=== PATIENT | male | born 1985 | race African-American/Black ===

== ENCOUNTER → 2016-07-04 | Outpatient (CLI) | payer OTHER | LOC: RAD 12:35 | PROVIDERS: ATTEND Internal Medicine Gastroenterology | DX: R10.13 Epigastric pain (principal) | CPT/HCPCS: 78227; A9537; Q9969; J2805 ==

== ENCOUNTER 2016-12-23 05:16 | Day surgery (SDC) | payer OTHER ==
[2016-12-21 08:50] LABS: HEMATOCRIT 44.8 % (37.9-51.0); HEMOGLOBIN 14.8 g/dL (13.5-17.0); HGB HCT DIFFERENCE -0.4; MEAN CORPUSCULAR HEMOGLOBIN 28.6 pg (27.0-33.4); MEAN CORPUSCULAR HGB CONC 33.1 g/dL (32.0-36.0); MEAN CORPUSCULAR VOLUME 87 fl (80-97); RED BLOOD COUNT 5.17 10^6/uL (4.35-5.55); RED CELL DISTRIBUTION WIDTH 12.6 % (11.5-14.0); WHITE BLOOD COUNT 4.3 10^3/uL (4.0-10.5)
[2016-12-21 09:08] LABS: ALANINE AMINOTRANSFERASE 37 U/L (21-72); ALBUMIN 4.1 g/dL (3.5-5.0); ALKALINE PHOSPHATASE 69 U/L (38-126); AMYLASE 36 U/L (30-110); ANION GAP 11 (5-19); ASPARTATE AMINO TRANSFERASE 17 U/L (17-59); BILIRUBIN,DIRECT 0.3 mg/dL (0.0-0.4); BILIRUBIN,TOTAL 0.7 mg/dL (0.2-1.3); BLOOD UREA NITROGEN 12 mg/dL (7-20); CARBON DIOXIDE 27 mmol/L (22-30); CHLORIDE 104 mmol/L (98-107); CREATININE RESULT 1.06 mg/dL (0.52-1.25); GLUCOSE 107 mg/dL (75-110); POTASSIUM 4.3 mmol/L (3.6-5.0); SODIUM 142.3 mmol/L (137-145); TOTAL PROTEIN 7.2 g/dL (6.3-8.2)
[~2016-12-23 05:16] MED LIST: ACETAMINOPHEN 325 MG TABLET PO PRN; CEFAZOLIN 1 GM/D5W RTU 1 GM/50 ML RTUPB IV PRN; LACTATED RINGERS 1000 ML IV PRN; LIDOCAINE 0.5% INJ-PF (5 MG/ML) 50 ML SDV SUBCUT PRN
[2016-12-23] MEDS ORDERED: LIDOCAINE 2% INJ-PF (100 MG/5 ML) SYRINGE ONE (06:36)
[2016-12-23] MEDS ORDERED: FENTANYL CITRATE INJ/PF 100 MCG/2 ML AMPUL ONE ×2 (06:36)
[2016-12-23] MEDS ORDERED: PROPOFOL INJ 200 MG/20 ML VIAL IV ONE (06:37)
[2016-12-23] MEDS ORDERED: DEXMEDETOMIDINE INJ 80 MCG/20 ML VIAL IV ONE (06:37)
[2016-12-23] MEDS ORDERED: MIDAZOLAM 2 MG/2 ML INJ ONE (06:37)
[2016-12-23] MEDS ORDERED: ACETAMINOPHEN 100 ML IV ONE (06:37)
[2016-12-23] MEDS ORDERED: BUPIVACAINE HCL 0.25 % INJ/PF (2.5 MG/1 ML) 30 ML VIAL ONE (06:47)
--- NOTE | 2016-12-23 08:37 | OPERATIVE REPORT E ---
Operative Report NAME: TONI DESAI : 1985 AGE: 31Y DATE OF SURGERY: 12/23/2016 ROOM: PREOPERATIVE DIAGNOSIS: CHRONIC CHOLECYSTITIS. POSTOPERATIVE DIAGNOSIS: CHRONIC CHOLECYSTITIS. OPERATION: Laparoscopic cholecystectomy. SURGEON: ORLY ANGELES M.D. ANESTHESIA: General. COMPLICATIONS: None. ESTIMATED BLOOD LOSS: Minimal. DRAINS: None. TISSUE REMOVED OR ALTERED: One gallbladder with contents. FINDINGS: See below. SUMMARY OF PROCEDURE: The patient was taken to the preoperative holding area in the main operating room where general anesthesia was induced. Arms were abducted, abdomen was exposed, prepped and draped in sterile fashion. The surgical plan and a surgical time out are conducted. Skin was anesthetized with 0.25% Marcaine. A supraumbilical vertical incision made with a knife and Veress needle inserted into the peritoneal cavity. Pneumoperitoneum was established. Veress needle was removed, a 5 mm port was inserted and a 5 mm flexible scope was inserted. Under direct visualization, 3 additional ports were placed: One in the subxiphoid, 2 in the subcostal positions. Visualization of the peritoneal cavity revealed no evidence of intraperitoneal injury. The gallbladder was then grasped with graspers at the fundus and infundibulum and reflected up over the liver bed. The neck of the gallbladder's junction with the cystic duct was dissected out. The anatomy here was classic. Cystic artery and cystic duct were surrounded with right inguinal clamps. Photographs were taken. Cystic artery and cystic vein were clipped as a unit, proximally 2 times, once distally, and divided with scissors. Critical view now obtained. Photographs obtained. We are now prepared to transect the cystic duct. The cystic duct was very thin. It was clipped twice proximally, once distally and divided. Gallbladder was removed from the liver bed using hook cautery resection, brought out of the patient through the supraumbilical port site. We returned to the peritoneal cavity and checked for bleeding and there was none. Clips were in appropriate position. We felt the operation was complete. Sponge and needle counts correct. All ports removed under direct visualization. Pneumoperitoneum evacuated and wounds closed with 3-0 Vicryl, Benzoin, and Steri-Strips. Patient tolerated the procedure well, extubated and taken to recovery in stable condition. DICTATING PHYSICIAN: ORLY ANGELES M.D. [id number] PHY#: [id number] ID: [id number] JOB#: [id number] ACCT: [id number] cc:ORLY ANGELES M.D. >
[2016-12-23] MEDS ORDERED: DEXAMETHASONE SOD PHOSPHATE INJ 4 MG/1 ML VIAL ONE (09:11)
[2016-12-23] MEDS ORDERED: GLYCOPYRROLATE INJ 0.4 MG/2 ML VIAL ONE (09:11)
[2016-12-23] MEDS ORDERED: ONDANSETRON HCL INJ/PF 4 MG/2 ML SDV ONE (09:11)
[2016-12-23] MEDS ORDERED: METOCLOPRAMIDE HCL INJ/PF 10 MG/2 ML SDV ONE (09:11)
[2016-12-23] MEDS ORDERED: ROCURONIUM BROMIDE INJ 50 MG/5 ML VIAL IV ONE (09:11)
[2016-12-23] MEDS ORDERED: NEOSTIGMINE METHYLSULFATE 10 MG/10 ML VIAL ONE (09:11)
[2016-12-23] MEDS ORDERED: OXYCODONE-ACETAMINOPHEN 5-325 MG TABLET ONE (09:32)
[2016-12-23 10:41] VITALS: BP 125/79
== END 2016-12-23 10:50 | disposition home or self-care (01) ==
LOC: OROUT 05:16
PROVIDERS: ATTEND Surgery
PROC: 0FT44ZZ Resection of Gallbladder, Percutaneous Endoscopic Approach (ICD-10-PCS; principal; 2016-12-23 07:30)
DX: K81.1 Chronic cholecystitis (principal); G47.33 Obstructive sleep apnea (adult) (pediatric)
CPT/HCPCS: 36415; 82150; 85027; 80076; 80048; 88304 ×2; 47562; J2250; J0690; J3490 ×2; J1100; J3010; J2001; J2765; J2405; J2704; J0131; 790

== ENCOUNTER 2017-08-22 06:39 | Emergency (ER) | payer OTHER ==
[2017-08-22 06:52] VITALS: BP 120/79
--- NOTE | 2017-08-22 07:49 | ER Document Report ---
ED Flu Like - General Chief Complaint: Flu Symptoms Stated Complaint: COLD SYMPTOMS Time Seen by Provider: 08/22/17 07:08 Mode of Arrival: Ambulatory Information source: Patient Notes: Patient is a 32-year-old male who presents to the ER today for 2 days of sore throat, productive cough, body aches all over. Patient denies any shortness of breath or wheezing although he has a history of "mild asthma." Patient denies any fever or chills. He states that the cough and the sore throat started about the same time. He states the cough does bother him at night. He denies any nausea, vomiting or diarrhea. TRAVEL OUTSIDE OF THE [place] IN LAST 30 DAYS: No - Related Data Allergies/Adverse Reactions: No Known Allergies Allergy (Verified 12/19/16 09:20) Past Medical History - General Information source: Patient - Social History Smoking Status: Current Every Day Smoker Chew tobacco use (# tins/day): No Frequency of alcohol use: Occasional Drug Abuse: None Family History: Reviewed & Not Pertinent Patient has suicidal ideation: No Patient has homicidal ideation: No - Past Medical History Cardiac Medical History: Denies: Hx Coronary Artery Disease, Hx Heart Attack, Hx Hypertension Pulmonary Medical History: Denies: Hx Asthma, Hx Bronchitis, Hx COPD, Hx Pneumonia Neurological Medical History: Denies: Hx Cerebrovascular Accident, Hx Seizures Renal/ Medical History: Denies: Hx Peritoneal Dialysis Musculoskeltal Medical History: Denies Hx Arthritis - Immunizations Hx Diphtheria, Pertussis, Tetanus Vaccination: Yes Hx Pneumococcal Vaccination: 05/08/11 Review of Systems - Review of Systems Constitutional: See HPI EENT: See HPI Cardiovascular: No symptoms reported Respiratory: See HPI Gastrointestinal: No symptoms reported Genitourinary: No symptoms reported Male Genitourinary: No symptoms reported Musculoskeletal: No symptoms reported Skin: No symptoms reported Hematologic/Lymphatic: No symptoms reported Neurological/Psychological: No symptoms reported Physical Exam - Vital signs Vitals: Temp Pulse Resp BP Pulse Ox 97.8 F 78 18 120/79 94 08/22/17 06:40 08/22/17 06:40 08/22/17 06:40 08/22/17 06:40 08/22/17 06:40 - Notes Notes: PHYSICAL EXAMINATION: GENERAL: Well-appearing and in no acute distress. HEAD: Atraumatic, normocephalic. EYES: Pupils equal round and reactive to light, extraocular movements intact, sclera anicteric, conjunctiva are normal. ENT: ear canals without erythema or foreign body, TMs pearly sanders with good bony landmarks, nares patent, oropharynx clear without exudates. Moist mucous membranes. NECK: Normal range of motion, supple without lymphadenopathy LUNGS: CTAB and equal. No wheezes rales or rhonchi. HEART: Regular rate and rhythm without murmurs ABDOMEN: Soft, no tenderness. No guarding, no rebound BACK: no vertebral tenderness, normal ROM GI/: no CVA tenderness EXTREMITIES: Normal range of motion, no pitting edema. No cyanosis. NEUROLOGICAL: Cranial nerves grossly intact. Normal sensory/motor exams. PSYCH: Normal mood, normal affect. SKIN: Warm, Dry, normal turgor, no rashes or lesions noted Course - Re-evaluation Re-evalutation: 08/22/17 07:47 Strep is negative today, patient looks clinically well and has not coughed at all here in the emergency department, however I will provide him with a cough medication and sent 800 mg of Motrin for his body aches. This is likely viral. - Vital Signs Vital signs: Temp Pulse Resp BP Pulse Ox 97.8 F 78 18 120/79 94 08/22/17 06:40 08/22/17 06:40 08/22/17 06:40 08/22/17 06:40 08/22/17 06:40 Discharge - Discharge Clinical Impression: Upper respiratory infection Qualifiers: URI type: acute nasopharyngitis (common cold) Qualified Code(s): J00 - Acute nasopharyngitis [common cold] Condition: Stable Disposition: HOME, SELF-CARE Additional Instructions: Return immediately for any new or worsening symptoms. Follow up with primary care provider, call tomorrow to make followup appointment. Prescriptions: Guaifenesin/D-Methorphan Hb [Robitussin-Dm Syrup 10 Ml Udcup] 10 ml PO Q4 PRN # 120 ml PRN Reason: Ibuprofen [Motrin 800 mg Tablet] 800 mg PO Q8H PRN #30 tab PRN Reason: Forms: Return to Work Referrals: NIVIA LAKE MD [Primary Care Provider] - Follow up as needed
== END 2017-08-22 07:55 | disposition home or self-care (01) ==
LOC: ER 06:39
DX: J00 Acute nasopharyngitis [common cold] (principal); M79.1 Myalgia; F17.200 Nicotine dependence, unspecified, uncomplicated
CPT/HCPCS: 87070; 87880; 99283

== ENCOUNTER 2019-03-05 22:07 | Emergency (ER) | payer OTHER ==
[2019-03-05] MEDS ORDERED: ASPIRIN 81 MG TABLET, CHEWABLE PO ONE (22:33)
--- NOTE | 2019-03-05 22:35 | ER Document Report ---
ED Medical Screen (RME) - General Chief Complaint: Chest Pain Stated Complaint: CHEST PAIN,HEART RACING Time Seen by Provider: 03/05/19 22:33 Primary Care Provider: NIVIA LAKE MD [Primary Care Provider] - Follow up as needed Mode of Arrival: Ambulatory Information source: Patient Notes: 33-year-old male presents to the emergency department with reports he felt like his heart was racing chest tightness while he was at work tonight at [employer]. Reports his hands were locking up also. Denies fever nausea vomiting diarrhea. Reports chest pain midsternal. Denies history of cardiac disease. Denies history of anxiety. Denies family history of cardiac disease. EKG shows sinus rhythm no ST elevation no T wave inversion I have greeted and performed a rapid initial assessment of this patient. A comprehensive ED assessment and evaluation of the patient, analysis of test results and completion of the medical decision making process will be conducted by additional ED providers. Dictation of this chart was performed using voice recognition software; therefore, there may be some unintended grammatical errors. TRAVEL OUTSIDE OF THE [place] IN LAST 30 DAYS: No - Related Data Allergies/Adverse Reactions: No Known Allergies Allergy (Verified 12/19/16 09:20) Past Medical History - Past Medical History Cardiac Medical History: Denies: Hx Coronary Artery Disease, Hx Heart Attack, Hx Hypertension Pulmonary Medical History: Denies: Hx Asthma, Hx Bronchitis, Hx COPD, Hx Pneumonia Neurological Medical History: Denies: Hx Cerebrovascular Accident, Hx Seizures Renal/ Medical History: Denies: Hx Peritoneal Dialysis Musculoskeltal Medical History: Denies Hx Arthritis - Immunizations Hx Diphtheria, Pertussis, Tetanus Vaccination: Yes Physical Exam - Vital signs Vitals: Temp Pulse Resp BP Pulse Ox 98.2 F 99 18 152/95 H 97 03/05/19 22:17 03/05/19 22:17 03/05/19 22:17 03/05/19 22:17 03/05/19 22:17 Course - Vital Signs Vital signs: Temp Pulse Resp BP Pulse Ox 98.2 F 99 18 152/95 H 97 03/05/19 22:17 03/05/19 22:17 03/05/19 22:17 03/05/19 22:17 03/05/19 22:17 Doctor's Discharge - Discharge Referrals: NIVIA LAKE MD [Primary Care Provider] - Follow up as needed
[2019-03-05 23:11] LABS: ABSOLUTE EOSINOPHILS # (AUTO) 0.2 10^3/uL (0.0-0.6); ABSOLUTE LYMPHOCYTES (AUTO) 1.6 10^3/uL (0.5-4.7); ABSOLUTE MONOCYTES (AUTO) 0.5 10^3/uL (0.1-1.4); ABSOLUTE NEUT (AUTO) 3.6 10^3/uL (1.7-8.2); BASOPHILS % (AUTO) 0.8 % (0-2); HEMATOCRIT 42.3 % (37.9-51.0); LYMPHOCYTES % (AUTO) 26.2 % (13-45); MEAN CORPUSCULAR HEMOGLOBIN 28.3 pg (27.0-33.4); MEAN CORPUSCULAR HGB CONC 33.2 g/dL (32.0-36.0); MEAN CORPUSCULAR VOLUME 85 fl (80-97); MONOCYTES % (AUTO) 9.1 % (3-13); PLATELET COUNT 186 10^3/uL (150-450); RED BLOOD COUNT 4.96 10^6/uL (4.35-5.55); RED CELL DISTRIBUTION WIDTH 13.1 % (11.5-14.0); SEGMENTED NEUTROPHILS % (AUTO) 60.9 % (42-78); TOTAL CELLS COUNTED % (AUTO) 100 %; WHITE BLOOD COUNT 5.9 10^3/uL (4.0-10.5)
--- NOTE | 2019-03-05 23:26 | RADIOLOGY REPORT (SQ) ---
EXAM DESCRIPTION: XR CHEST 2 VIEWS COMPLETED DATE/TME: 03/05/2019 22:33 CLINICAL HISTORY: 33 years, Male, cp COMPARISON: 03/22/2012 chest NUMBER OF VIEWS: 2 TECHNIQUE: 2 views of the chest LIMITATIONS: None. FINDINGS: The heart size is normal. The lungs are clear. There is no pneumothorax IMPRESSION: Negative chest copyright 2010 [employer]- All Rights Reserved
[2019-03-05 23:27] LABS: ALBUMIN 4.4 g/dL (3.5-5.0); ALKALINE PHOSPHATASE 77 U/L (38-126); ANION GAP 10 (5-19); ASPARTATE AMINO TRANSFERASE 20 U/L (17-59); BILIRUBIN,DIRECT 0.1 mg/dL (0.0-0.4); BILIRUBIN,TOTAL 0.6 mg/dL (0.2-1.3); BLOOD UREA NITROGEN 15 mg/dL (7-20); CALCIUM 9.7 mg/dL (8.4-10.2); CARBON DIOXIDE 27 mmol/L (22-30); CHLORIDE 105 mmol/L (98-107); CREATINE KINASE 245 U/L (55-170); GLUCOSE 97 mg/dL (75-110); POTASSIUM 3.8 mmol/L (3.6-5.0); TOTAL PROTEIN 7.4 g/dL (6.3-8.2)
[2019-03-05 23:39] LABS: CREATINE KINASE MB 1.47 ng/mL (<4.55)
[2019-03-05 23:41] LABS: TROPONIN I < 0.012 ng/mL
[2019-03-06] MEDS ORDERED: ASPIRIN 81 MG TABLET, CHEWABLE ONE ×2 (01:52→01:54)
--- NOTE | 2019-03-06 02:02 | ER Document Report ---
ED Cardiac - General Chief Complaint: Chest Pain Stated Complaint: CHEST PAIN,HEART RACING Time Seen by Provider: 03/06/19 02:02 Primary Care Provider: DANIELA MONTERO MD [ACTIVE STAFF] - Follow up as needed NIVIA LAKE MD [Primary Care Provider] - Follow up as needed Mode of Arrival: Ambulatory Information source: Patient Notes: HISTORY OF PRESENT ILLNESS: Patient is a 33-year-old male with a past medical history of obesity and anxiety who presents with episode of palpitations that occurred while driving his car prior to arrival. Patient reports he has had similar symptoms in the past but was self-limited, this episode occurred while driving and lasted longer than normal. He felt "overwhelmed and like I was going to , "but I have bad anxiety." He denies shortness of breath, no chest pain, no other symptoms. Location: Chest Onset: Sudden prior to arrival Alleviation: None Provocation: Unknown Quality: Palpitations Radiation: None Severity: Moderate, currently resolved Timing: Resolved History of CAD: None Associated symptoms: Denies chest pain or shortness of breath, no fevers or chills, no nausea or vomiting REVIEW OF SYSTEMS: CONSTITUTIONAL : Denies fever or chills, no sweats. Denies recent illness. EENT: Denies eye, ear, throat, or mouth pain or symptoms. Denies nasal or sinus congestion. CARDIOVASCULAR: Positive for palpitations. Denies chest pain. Denies swelling of the legs. RESPIRATORY: Denies cough, cold, or chest congestion. Denies shortness of breath or difficulty breathing. Denies wheezing. GASTROINTESTINAL: Denies abdominal pain. Denies nausea, vomiting, or diarrhea. Denies constipation. GENITOURINARY: Denies difficulty urinating, painful urination, burning, frequency, or blood in urine. MUSCULOSKELETAL: Denies neck or back pain or joint pain or swelling. SKIN: Denies rash or skin lesions. HEMATOLOGIC : Denies easy bruising or bleeding. LYMPHATIC: Denies swollen, enlarged glands. NEUROLOGICAL: Denies altered mental status or loss of consciousness. Denies headache. Denies weakness or paralysis or loss of use of either side. Denies problems with gait or speech. Denies sensory or motor loss. PSYCHIATRIC: Denies anxiety or stress or depression. All other systems reviewed and negative. PHYSICAL EXAMINATION: GENERAL: Well-appearing, obese, well-nourished and in no acute distress. HEAD: Atraumatic, normocephalic. No scalp deformity, depression, or crepitance. EYES: Pupils are 3 mm and equal/round/reactive to light, extraocular movements intact, sclera anicteric, conjunctiva are normal. ENT: Nares patent bilaterally, oropharynx. Moist mucous membranes. No tonsil hypertrophy. NECK: Normal range of motion, supple without lymphadenopathy. LUNGS: Breath sounds present, equal, and clear to auscultation bilaterally. No wheezes, rales, or rhonchi. HEART: Regular rate and rhythm without murmurs, rubs, or gallops. 2+ peripheral pulses. Normal capillary refill. ABDOMEN: Soft, nontender, nondistended. Normoactive bowel sounds. No guarding, no rebound. No masses appreciated. BACK: Normal contour, no midline tenderness. Rectal exam deferred. GENITAL/PELVIC: Deferred. EXTREMITIES: Normal range of motion, no pitting or edema. No cyanosis. NEUROLOGICAL: No focal neurological deficits. Moves all extremities spontaneously and on command. PSYCH: Normal mood, normal affect. No suicidal thoughts/ideations. No homicidal thoughts/ideations. No hallucinations. SKIN: Warm, dry, normal turgor, no rashes or lesions noted. ASSESSMENT AND PLAN: This patient 33is a [id number] male who presents with palpitations and anxiety prior to arrival. Given history, most likely represents PSVT versus SVT versus anxiety. 1. Will obtain labs, urine, EKG, chest x-ray, cardiac enzymes, urine, drug screen, and reassess. 2. Will monitor and observe. TRAVEL OUTSIDE OF THE [place] IN LAST 30 DAYS: No - HPI Patient complains to provider of: Palpitations Was the onset of pain: Sudden Is the pain a: New problem Chest pain location: Substernal Quality of pain: None Severity now: None Severity at worst: Moderate Pain level currently: Denies Cardiac risk factors: None Positive cardiac history: No Associated symptoms: Anxiety, Other - Paresthesias of the extremities Exacerbated by: Denies Relieved by: Nothing Similar symptoms previously: No Recently seen / treated by doctor: No - Related Data Allergies/Adverse Reactions: No Known Allergies Allergy (Verified 12/19/16 09:20) Past Medical History - General Information source: Patient - Social History Smoking Status: Current Some Day Smoker Chew tobacco use (# tins/day): No Frequency of alcohol use: None Drug Abuse: None Lives with: Family Family History: Reviewed & Not Pertinent Patient has suicidal ideation: No Patient has homicidal ideation: No - Past Medical History Cardiac Medical History: Reports: None Denies: Hx Coronary Artery Disease, Hx Heart Attack, Hx Hypertension Pulmonary Medical History: Reports: None Denies: Hx Asthma, Hx Bronchitis, Hx COPD, Hx Pneumonia EENT Medical History: Reports: None Neurological Medical History: Reports: None. Denies: Hx Cerebrovascular Accident, Hx Seizures Endocrine Medical History: Reports: None Renal/ Medical History: Reports: None. Denies: Hx Peritoneal Dialysis Malignancy Medical History: Reports None GI Medical History: Reports: None Musculoskeletal Medical History: Reports None, Denies Hx Arthritis Skin Medical History: Reports None Psychiatric Medical History: Reports: None Traumatic Medical History: Reports: None Infectious Medical History: Reports: None Surgical Hx: Negative Past Surgical History: Reports: None - Immunizations Hx Diphtheria, Pertussis, Tetanus Vaccination: Yes Hx Pneumococcal Vaccination: 05/08/11 Review of Systems - Review of Systems Constitutional: No symptoms reported EENT: No symptoms reported Cardiovascular: See HPI, Palpitations Respiratory: No symptoms reported Gastrointestinal: No symptoms reported Genitourinary: No symptoms reported Male Genitourinary: No symptoms reported Musculoskeletal: No symptoms reported Skin: No symptoms reported Hematologic/Lymphatic: No symptoms reported Neurological/Psychological: See HPI, Anxiety, Tingling -: Yes All other systems reviewed and negative Physical Exam - Vital signs Vitals: Temp Pulse Resp BP Pulse Ox 98.2 F 99 18 152/95 H 97 03/05/19 22:17 03/05/19 22:17 03/05/19 22:17 03/05/19 22:17 03/05/19 22:17 Interpretation: Normal Course - Re-evaluation Re-evalutation: 03/06/19 02:41 Labs are grossly unremarkable with negative cardiac enzymes and normal chest x- ray. Will discharge the patient home with strict return precautions and follow- up with primary care and cardiology. All results were explained to and discussed with the patient, and all questions addressed and answered. The patient voices both understanding and agreeing with the plan. - Vital Signs Vital signs: Temp Pulse Resp BP Pulse Ox 98.2 F 99 15 115/79 93 03/05/19 22:17 03/05/19 22:17 03/06/19 03:01 03/06/19 03:01 03/06/19 03:01 - Laboratory Result Diagrams: 03/05/19 22:40 03/05/19 22:40 Laboratory results interpreted by me: 03/05/19 22:40 Creatine Kinase 245 H - Diagnostic Test Radiology reviewed: Image reviewed, Reports reviewed - EKG Interpretation by Me EKG shows normal: Sinus rhythm Rate: Normal Rhythm: NSR [place]/QRS: No: Right axis deviation, Left axis deviation, RBBB, LBBB, IVCD, LAHB/LAFB, LPHB/LPFB, Bifasicular block Voltage: No: Increased voltage, Consistant with LVH, Decreased voltage, Throughout, Limb leads P Waves: No: ANIL, LAE, Absent, AV Dissociation, Other Heart block present: No: 1st Degree, Mobitz 1, Mobitz 2, CHB (3rd degree block) When compared to previous EKG there are: Previous EKG unavailable Discharge - Discharge Clinical Impression: Palpitations Condition: Good Disposition: HOME, SELF-CARE Instructions: Palpitations (Irregular or Rapid Heartrate) ([facility]) Additional Instructions: You have been evaluated in the Emergency Department for palpitations. While here, you had normal blood work and it is now safe to be discharged home. Please follow-up with cardiology as instructed, contact them at the number provided to set up an appointment as soon as possible. Return to the Emergency Department if you experience chest pain, difficulty breathing, episodes of pass ing out, or any other concerning symptoms. Forms: Return to Work Referrals: NIVIA LAKE MD [Primary Care Provider] - Follow up as needed DANEILA MONTERO MD [ACTIVE STAFF] - Follow up as needed Print Language: Trinidadian
[2019-03-06 03:11] VITALS: BP 115/79
--- NOTE | 2019-03-06 07:44 | EKG REPORT ---
SEVERITY:- NORMAL ECG - SINUS RHYTHM : Confirmed by: Laurent Long MD 06-Mar-2019 07:43:17
== END 2019-03-06 03:24 | disposition home or self-care (01) ==
LOC: ER 22:07
DX: R00.2 Palpitations (principal); E07.9 Disorder of thyroid, unspecified; E66.9 Obesity, unspecified; F17.200 Nicotine dependence, unspecified, uncomplicated; F41.9 Anxiety disorder, unspecified
CPT/HCPCS: 36415; 71046; 80053; 82550; 82553; 84484; 85025; 93005; 93010; 99285

== ENCOUNTER 2019-03-07 11:21 | Emergency (ER) | payer OTHER ==
[2019-03-07] MEDS ORDERED: ASPIRIN 81 MG TABLET, CHEWABLE PO ONE (11:26)
--- NOTE | 2019-03-07 11:31 | ER Document Report ---
ED Medical Screen (RME) - General Chief Complaint: Chest Pain > 30 Stated Complaint: CHEST PAIN Time Seen by Provider: 03/07/19 11:26 Primary Care Provider: NIVIA LAKE MD [Primary Care Provider] - Follow up as needed Mode of Arrival: Ambulatory Information source: Patient Notes: 33-year-old male presented to ED for complaint of chest pain. He states he was here earlier in the week for the same symptoms. He states he has sharp pain in the center of his chest and numbness to both hands. He denies any shortness of breath. He has no other history. He is alert oriented respirations regular and unlabored speaking in full sentences walks with a even steady gait. I have greeted and performed a rapid initial assessment of this patient. A comprehensive ED assessment and evaluation of the patient, analysis of test results and completion of medical decision making process will be conducted by an additional ED providers. TRAVEL OUTSIDE OF THE [place] IN LAST 30 DAYS: No - Related Data Allergies/Adverse Reactions: No Known Allergies Allergy (Verified 12/19/16 09:20) Past Medical History - Past Medical History Cardiac Medical History: Denies: Hx Coronary Artery Disease, Hx Heart Attack, Hx Hypertension Pulmonary Medical History: Denies: Hx Asthma, Hx Bronchitis, Hx COPD, Hx Pneumonia Neurological Medical History: Denies: Hx Cerebrovascular Accident, Hx Seizures Renal/ Medical History: Denies: Hx Peritoneal Dialysis Musculoskeltal Medical History: Denies Hx Arthritis - Immunizations Hx Diphtheria, Pertussis, Tetanus Vaccination: Yes Doctor's Discharge - Discharge Referrals: NIVIA LAKE MD [Primary Care Provider] - Follow up as needed
[2019-03-07 12:07] LABS: ABSOLUTE EOSINOPHILS # (AUTO) 0.1 10^3/uL (0.0-0.6); ABSOLUTE MONOCYTES (AUTO) 0.4 10^3/uL (0.1-1.4); ABSOLUTE NEUT (AUTO) 2.1 10^3/uL (1.7-8.2); BASOPHILS % (AUTO) 1.2 % (0-2); EOSINOPHILS % (AUTO) 2.7 % (0-6); HEMATOCRIT 43.5 % (37.9-51.0); HEMOGLOBIN 14.4 g/dL (13.5-17.0); LYMPHOCYTES % (AUTO) 28.2 % (13-45); MEAN CORPUSCULAR HEMOGLOBIN 28.1 pg (27.0-33.4); MEAN CORPUSCULAR HGB CONC 33.2 g/dL (32.0-36.0); MEAN CORPUSCULAR VOLUME 85 fl (80-97); PLATELET COUNT 175 10^3/uL (150-450); RED BLOOD COUNT 5.13 10^6/uL (4.35-5.55); RED CELL DISTRIBUTION WIDTH 12.9 % (11.5-14.0); SEGMENTED NEUTROPHILS % (AUTO) 57.9 % (42-78); TOTAL CELLS COUNTED % (AUTO) 100 %; WHITE BLOOD COUNT 3.6 10^3/uL (4.0-10.5)
--- NOTE | 2019-03-07 12:07 | RADIOLOGY REPORT (SQ) ---
EXAM DESCRIPTION: CHEST 2 VIEWS COMPLETED DATE/TIME: 03/07/2019 11:54 am REASON FOR STUDY: chest pain center of chest finger numbness COMPARISON: 03/05/2019 EXAM PARAMETERS: NUMBER OF VIEWS: two views TECHNIQUE: Digital Frontal and Lateral radiographic views of the chest acquired. RADIATION DOSE: NA LIMITATIONS: none FINDINGS: LUNGS AND PLEURA: No opacities, masses or pneumothorax. No pleural effusion. MEDIASTINUM AND HILAR STRUCTURES: No masses or contour abnormalities. HEART AND VASCULAR STRUCTURES: Heart normal size. No evidence for failure. BONES: No acute findings. HARDWARE: None in the chest. OTHER: No other significant finding. IMPRESSION: NO ACUTE RADIOGRAPHIC FINDING IN THE CHEST. TECHNICAL DOCUMENTATION: JOB ID: [id number] [email or web address]- All Rights Reserved Reading location - IP/workstation name: [email or web address]
[2019-03-07 12:30] LABS: ALBUMIN 4.2 g/dL (3.5-5.0); ALKALINE PHOSPHATASE 79 U/L (38-126); ANION GAP 10 (5-19); ASPARTATE AMINO TRANSFERASE 20 U/L (17-59); BILIRUBIN,DIRECT 0.1 mg/dL (0.0-0.4); BLOOD UREA NITROGEN 10 mg/dL (7-20); CALCIUM 9.8 mg/dL (8.4-10.2); CARBON DIOXIDE 25 mmol/L (22-30); CHLORIDE 107 mmol/L (98-107); CREATINE KINASE 175 U/L (55-170); GLUCOSE 105 mg/dL (75-110); TOTAL PROTEIN 7.3 g/dL (6.3-8.2)
[2019-03-07 12:48] LABS: CREATINE KINASE MB 0.85 ng/mL (<4.55); NT PRO BNP 16 pg/mL (<125)
[2019-03-07 12:49] LABS: TROPONIN I < 0.012 ng/mL
--- NOTE | 2019-03-07 13:08 | EKG REPORT ---
SEVERITY:- BORDERLINE ECG - SINUS RHYTHM SHORT CT INTERVAL, ACCELERATED AV CONDUCTION : Confirmed by: Laurent Long MD 07-Mar-2019 13:07:28
--- NOTE | 2019-03-07 14:43 | ER Document Report ---
ED General - General Chief Complaint: Chest Pain Stated Complaint: CHEST PAIN Time Seen by Provider: 03/07/19 11:26 Primary Care Provider: NIVIA LAKE MD [Primary Care Provider] - Follow up as needed Mode of Arrival: Ambulatory TRAVEL OUTSIDE OF THE [place] IN LAST 30 DAYS: No - HPI Notes: Patient is a 33-year-old male who presents emergency department for evaluation. He describes a thumping chest pain. He states he is associated "cramping of his hands with numbness and tingling. He states he feels somewhat short of breath. This is not brought about by exertion, nothing seems to make it better. His symptoms last 15 to 30 minutes at a time. He was actually seen here recently for similar symptoms, was sent for follow-up with a Holter monitor on Monday. He has not seen his primary care doctor in a few years. He has no personal history of cancer. No prolonged immobilization, no recent surgery. No family history of DVT or PE to his knowledge. - Related Data Allergies/Adverse Reactions: No Known Allergies Allergy (Verified 12/19/16 09:20) Home Medications: None Past Medical History - General Information source: Patient - Social History Smoking Status: Current Every Day Smoker Chew tobacco use (# tins/day): No Frequency of alcohol use: Occasional Drug Abuse: Marijuana Family History: Reviewed & Not Pertinent, Hypertension Patient has suicidal ideation: No Patient has homicidal ideation: No - Past Medical History Cardiac Medical History: Denies: Hx Coronary Artery Disease, Hx Heart Attack, Hx Hypertension Pulmonary Medical History: Denies: Hx Asthma, Hx Bronchitis, Hx COPD, Hx Pneumonia Neurological Medical History: Denies: Hx Cerebrovascular Accident, Hx Seizures Renal/ Medical History: Denies: Hx Peritoneal Dialysis Musculoskeletal Medical History: Denies Hx Arthritis Past Surgical History: Reports: Hx Cholecystectomy - Immunizations Hx Diphtheria, Pertussis, Tetanus Vaccination: Yes Hx Pneumococcal Vaccination: 05/08/11 Review of Systems - Review of Systems Constitutional: No symptoms reported EENT: No symptoms reported Cardiovascular: See HPI Respiratory: See HPI Gastrointestinal: No symptoms reported Genitourinary: No symptoms reported Musculoskeletal: No symptoms reported Skin: No symptoms reported Neurological/Psychological: No symptoms reported Physical Exam - Vital signs Vitals: Temp Pulse Resp BP Pulse Ox 98.4 F 80 16 140/89 H 97 03/07/19 11:32 03/07/19 11:32 03/07/19 11:32 03/07/19 11:32 03/07/19 11:32 - Notes Notes: Vital signs reviewed, please refer to chart. Head is normocephalic, atraumatic. Pupils equal round, reactive to light. Neck is supple without meningismus. Heart is regular rate and rhythm. Lungs are clear to auscultation bilaterally. Abdomen is soft, nontender, normoactive bowel sounds throughout. Extremities without cyanosis, clubbing. Posterior calves are nontender. Peripheral pulses are equal. Skin is warm and dry. Patient is awake, alert, neurological exam is nonfocal. Course - Re-evaluation Re-evalutation: 03/07/19 14:42 Patient presents emergency department for evaluation of pounding chest pain, palpitations, numbness of his hands. His laboratory investigations were obtained, patient placed on the nuclear monitoring technician. Patient had no significant ectopy while here. He remained in sinus rhythm, heart rate in the 70s and 80s. Laboratory investigations failed to reveal any significant abnormality. He has no risk factors for DVT or PE. He already has outpatient follow-up with a Holter monitor. He is strongly encouraged to address his risk factors in regards to coronary artery disease. He voiced understanding to this. He is to return to the emergency department with worsening or new concerning symptoms of any sort. - Vital Signs Vital signs: Temp Pulse Resp BP Pulse Ox 98.4 F 80 16 140/89 H 97 03/07/19 11:32 03/07/19 11:32 03/07/19 11:32 03/07/19 11:32 03/07/19 12:03 - Laboratory Result Diagrams: 03/07/19 11:43 03/07/19 11:43 Laboratory results interpreted by me: 03/07/19 03/07/19 11:43 11:43 WBC 3.6 L Creatine Kinase 175 H - Diagnostic Test Radiology reviewed: Reports reviewed Radiology results interpreted by me: 03/07/19 14:43 Chest X-Ray 03/07/19 11:27 IMPRESSION: NO ACUTE RADIOGRAPHIC FINDING IN THE CHEST. - EKG Interpretation by Me Additional EKG results interpreted by me: 03/07/19 14:43 Sinus mechanism with a rate of 74 bpm. Short ME interval. Nonspecific ST changes, but no acute changes concerning for ischemia or infarction. Discharge - Discharge Clinical Impression: Palpitations, Chest pain Condition: Stable Disposition: HOME, SELF-CARE Instructions: Chest Pain of Unclear Cause ([facility]), Palpitations (Irregular or Rapid Heartrate) ([facility]) Additional Instructions: No clear cause was found for your palpitations or chest pain today. Please follow-up with your Holter monitor, follow-up with Dr. Lake next week. Continue to address all of your risk factors as discussed. Return to the emergency department with worsening or new concerning symptoms of any sort. Referrals: NIVIA LAKE MD [Primary Care Provider] - Follow up as needed
[2019-03-07 14:45] LABS: INTERNATIONAL RATION (INR) 1.04; PROTHROMBIN TIME 13.6 SEC (11.4-15.4)
[2019-03-07 15:09] VITALS: BP 150/77
== END 2019-03-07 15:10 | disposition home or self-care (01) ==
LOC: ER 11:21
DX: R07.9 Chest pain, unspecified (principal); R00.2 Palpitations; R25.2 Cramp and spasm; R20.0 Anesthesia of skin; R20.2 Paresthesia of skin; R06.02 Shortness of breath; F17.200 Nicotine dependence, unspecified, uncomplicated; F12.10 Cannabis abuse, uncomplicated
CPT/HCPCS: 36415; 71046; 80053; 82550; 82553; 83735; 83880; 84443; 84484; 85025; 85610; 85730; 93005; 93010

== ENCOUNTER 2019-03-12 12:15 | Emergency (ER) | payer OTHER ==
--- NOTE | 2019-03-12 15:15 | ER Document Report ---
ED General - General Chief Complaint: Numbness of Arm Stated Complaint: RIGHT ARM NUMBNESS Time Seen by Provider: 03/12/19 12:45 Notes: RN NOTE: Pt ambulatory to ED c/o "chest racing" and right sided arm tingling intermittent since last week Monday. Pt reports tingling/numbness is predominantly in his right hand. Pt reports he was seen for same symptoms and dx with anxiety last week Monday and saw Dr. Jason this morning as well. Pt reports he was prescribed anxiety medications but does not want to take them because "I don't like taking pills". Pt reports right sided neck pain, had a CT cervical scan done this AM which was unremarkable. Breaths even and unlabored. Pt appears anxious. Negative stroke screen. MY HPI: Patient voices he was seen here approximately a week ago for his heart racing and tingling in his right side. States he was told to follow-up with cardiology. States he was at Dr. Jason's office today who gave him a prescription for Celexa, BuSpar, Vistaril. Also sent him for an outpatient x- ray of his cervical spine. States Dr. Jason thought potentially he had a pinched nerve so he wanted him to get an x-ray outpatient. Patient voices he was at this facility to get the outpatient x-ray and then again felt his "heart racing" and tingling in bilateral hands. Patient voices at that point time he decided to check to check him to be reevaluated in the emergency room. Patient voices to me he is currently working 2 jobs, states he is currently going through divorce and has a young child at home. States he is very "stressed." Patient's denying any suicidal or homicidal ideations. Patient is currently denying any chest pain, shortness of breath, numbness or tingling in either hands. TRAVEL OUTSIDE OF THE [place] IN LAST 30 DAYS: No - Related Data Allergies/Adverse Reactions: No Known Allergies Allergy (Verified 03/12/19 12:29) Past Medical History - General Information source: Patient - Social History Smoking Status: Never Smoker Chew tobacco use (# tins/day): No Frequency of alcohol use: Occasional Drug Abuse: Marijuana Family History: Reviewed & Not Pertinent, Hypertension Patient has suicidal ideation: No Patient has homicidal ideation: No - Past Medical History Cardiac Medical History: Denies: Hx Coronary Artery Disease, Hx Heart Attack, Hx Hypertension Pulmonary Medical History: Denies: Hx Asthma, Hx Bronchitis, Hx COPD, Hx Pneumonia Neurological Medical History: Denies: Hx Cerebrovascular Accident, Hx Seizures Renal/ Medical History: Denies: Hx Peritoneal Dialysis Musculoskeletal Medical History: Denies Hx Arthritis Past Surgical History: Reports: Hx Cholecystectomy - Immunizations Hx Diphtheria, Pertussis, Tetanus Vaccination: Yes Hx Pneumococcal Vaccination: 05/08/11 Review of Systems - Review of Systems Constitutional: denies: Fever EENT: No symptoms reported Cardiovascular: See HPI Respiratory: See HPI Gastrointestinal: No symptoms reported Genitourinary: No symptoms reported Male Genitourinary: No symptoms reported Musculoskeletal: No symptoms reported Skin: No symptoms reported Hematologic/Lymphatic: No symptoms reported Neurological/Psychological: See HPI Physical Exam - Vital signs Vitals: Temp Pulse Resp BP Pulse Ox 98.0 F 83 18 144/77 H 99 03/12/19 12:18 03/12/19 12:18 03/12/19 12:18 03/12/19 12:18 03/12/19 12:18 - Notes Notes: GENERAL: Alert, interacts well. No acute distress. HEAD: Normocephalic, atraumatic. EYES: Pupils equal, round, and reactive to light. Extraocular movements intact. ENT: Oral mucosa moist, tongue midline. NECK: Full range of motion. Supple. Trachea midline. LUNGS: Clear to auscultation bilaterally, no wheezes, rales, or rhonchi. No respiratory distress. HEART: Regular rate and rhythm. No murmur ABDOMEN: Soft, non-tender. Non-distended. Bowel sounds present in all 4 quadrants. EXTREMITIES: Moves all 4 extremities spontaneously. No edema, normal radial and dorsalis pedis pulses bilaterally. No cyanosis. BACK: no cervical, thoracic, lumbar midline tenderness. No saddle anesthesia, normal distal neurovascular exam. NEUROLOGICAL: Alert and oriented x3. Normal speech. cranial nerves II through XII grossly intact PSYCH: Normal affect, normal mood. SKIN: Warm, dry, normal turgor. No rashes or lesions noted. Course - Re-evaluation Re-evalutation: 03/12/19 15:20 Patient has been to this facility in the past for chest pain, has had a full work-up that was negative. Was told to follow-up with cardiology. Cardiology did give the patient a prescription for Celexa, BuSpar, Vistaril. Patient has prescription with him in the emergency room. I have asked Bro Alejo, mental health air conditioning unit tester to speak to the patient at bedside. Please see Lamin Meyer' note. She has given me paperwork for community outpatient referral this and [facility] Aiden Melchor LPC, [facility] information. I have again reassessed the patient at bedside. Patient voices "I feel so much better after talking to Lamin." I have again reiterated need to follow-up with these outpatient referral list as these are also mental health evaluators that he can speak to. Patient voices understanding, stable for discharge. Continues to deny any chest pain, shortness of breath, numbness or tingling in any extremity. - Vital Signs Vital signs: Temp Pulse Resp BP Pulse Ox 98.0 F 83 18 144/77 H 99 03/12/19 12:18 03/12/19 12:18 03/12/19 12:18 03/12/19 12:18 03/12/19 12:18 Discharge - Discharge Clinical Impression: Anxiety Condition: Stable Disposition: HOME, SELF-CARE Instructions: Anxiety ([facility]) Additional Instructions: As we discussed you have been seen and treated in the emergency department for anxiety. Please make sure you take medications as prescribed by Dr. Christianson. Imaging of your neck revealed no fractures or broken bones. Please make sure you continue to follow-up with primary care provider and cardiology as needed. Please also use community outpatient referral list for continued mental health. Please return to the emergency department for any concerns. Forms: Return to Work
[2019-03-12 15:43] VITALS: BP 139/75
== END 2019-03-12 15:43 | disposition home or self-care (01) ==
LOC: ER 12:15
DX: F41.9 Anxiety disorder, unspecified (principal); R20.0 Anesthesia of skin; Z90.49 Acquired absence of other specified parts of digestive tract
CPT/HCPCS: 99283

== ENCOUNTER → 2019-03-12 | Outpatient (CLI) | payer OTHER ==
--- NOTE | 2019-03-12 12:19 | RADIOLOGY REPORT (SQ) ---
EXAM DESCRIPTION: CERV SP 4 OR 5 VIEWS COMPLETED DATE/TIME: 03/12/2019 11:35 am REASON FOR STUDY: CERVICALGIA (M54.2) M54.2 CERVICALGIA COMPARISON: None. NUMBER OF VIEWS: Five views. TECHNIQUE: AP, lateral, obliques and odontoid radiographic images acquired of the cervical spine. LIMITATIONS: None. FINDINGS: MINERALIZATION: Normal. ALIGNMENT: Anatomic. VERTEBRAE: Vertebral bodies of normal height. DISCS: No significant osteophytes or sclerosis. Disc height maintained. FORAMINA: No osteophytes or foraminal narrowing. LATERAL AND POSTERIOR ELEMENTS: Facets, lateral masses and spinous processes without significant find ings. HARDWARE: None in the spine. SOFT TISSUES: No masses or calcifications. Lung apices clear. OTHER: No other significant finding. IMPRESSION: NO SIGNIFICANT RADIOGRAPHIC FINDING IN THE CERVICAL SPINE. TECHNICAL DOCUMENTATION: JOB ID: [id number] [email or web address]- All Rights Reserved Reading location - IP/workstation name: [email or web address]
== END ==
LOC: RAD 10:30
PROVIDERS: ATTEND Internal Medicine Cardiovascular Disease
DX: M54.2 Cervicalgia (principal)
CPT/HCPCS: 72050

== ENCOUNTER 2019-05-19 15:32 | Emergency (ER) | payer OTHER ==
[2019-05-19] MEDS ORDERED: IBUPROFEN 800 MG TABLET PO ONE (16:10)
[2019-05-19] MEDS ORDERED: ACETAMINOPHEN 325 MG TABLET PO ONE (16:13)
--- NOTE | 2019-05-19 16:15 | ER Document Report ---
HPI - HPI Patient complains to provider of: COUGH FEVER SORE THROAT BODY ACHES Time Seen by Provider: 05/19/19 16:05 Onset: Other - MONDAY NIGHT Quality of pain: Achy Pain Level: 3 Context: This 33-year-old male presents emergency department with complaints of body aches sore throat fever since Monday night. Patient reports temperature of 103 this morning. He did take some [id number] meds without relief of symptoms. Patient did not receive his flu vaccine. Denies vomiting diarrhea. Associated Symptoms: Body/muscle aches, Nonproductive cough, Fever Exacerbated by: Denies Relieved by: Denies Similar symptoms previously: No Recently seen / treated by doctor: No - REPRODUCTIVE Reproductive: DENIES: : Past Medical History - General Information source: Patient - Social History Smoking Status: Never Smoker Chew tobacco use (# tins/day): No Frequency of alcohol use: None Drug Abuse: None Lives with: Family Family History: Reviewed & Not Pertinent, Hypertension Patient has suicidal ideation: No Patient has homicidal ideation: No - Medical History Medical History: Negative - Past Medical History Cardiac Medical History: Denies: Hx Coronary Artery Disease, Hx Heart Attack, Hx Hypertension Pulmonary Medical History: Denies: Hx Asthma, Hx Bronchitis, Hx COPD, Hx Pneumonia Neurological Medical History: Denies: Hx Cerebrovascular Accident, Hx Seizures Renal/ Medical History: Denies: Hx Peritoneal Dialysis Musculoskeletal Medical History: Denies Hx Arthritis Past Surgical History: Reports: Hx Cholecystectomy - Immunizations Hx Diphtheria, Pertussis, Tetanus Vaccination: Yes Hx Pneumococcal Vaccination: 05/08/11 Vertical Provider Document - CONSTITUTIONAL Agree With Documented VS: Yes Exam Limitations: No Limitations General Appearance: WD/WN, No Apparent Distress - INFECTION CONTROL TRAVEL OUTSIDE OF THE [place] IN LAST 30 DAYS: No - HEENT HEENT: Atraumatic, Normal ENT Exam, Normocephalic. negative: Conjuctival Injection, Pharyngeal Erythema, Tympanic Membrane Red, Tympanic Membrane Bulging - NECK Neck: Normal Inspection, Supple. negative: Lymphadenopathy-Left, Lymphadenopathy-Right - RESPIRATORY Respiratory: Breath Sounds Normal, No Respiratory Distress - GI/ABDOMEN Gastrointestinal: Abdomen Soft, Abdomen Non-Tender - BACK Back: negative: CVA Tenderness-Right, CVA Tenderness-Left - MUSCULOSKELETAL/EXTREMETIES Musculoskeletal/Extremeties: ELVIRA PALMER - NEURO Level of Consciousness: Awake, Alert, Appropriate Motor/Sensory: No Motor Deficit - DERM Integumentary: Warm, Dry Course - Re-evaluation Re-evalutation: 05/19/19 16:12 Patient presents emergency department with complaints of flulike symptoms body aches cough fever sore throat. Patient reports he took Sudafed and Motrin between 10 and 2 PM today. 05/19/19 17:49 X-ray negative for pneumonia flu test and strep test negative. Patient instructed on throat culture pending. Patient looks nontoxic drinking p.o. fl uids without problems. He was instructed on ibuprofen and Tessalon Perles. Instructed to follow-up with primary care provider for recheck or return to the emergency department for concerns he verbalized understanding to all instructions Chest X-Ray 05/19/19 16:10 IMPRESSION: NO ACUTE RADIOGRAPHIC FINDING IN THE CHEST. Laboratory 05/19/19 05/19/19 16:45 16:45 Influenza A (Rapid) NEGATIVE Influenza B (Rapid) NEGATIVE Group A Strep Rapid NEGATIVE - Diagnostic Test Radiology reviewed: Image reviewed, Reports reviewed Discharge - Discharge Clinical Impression: Sore throat, Body aches Condition: Stable Disposition: HOME, SELF-CARE Instructions: Acetaminophen, Use of Gkhj-Zuc-Bqwegnh Ibuprofen ([facility]), Tessalon Perles ([facility]) Additional Instructions: *You have been evaluated for Flu like symptoms today, cough, fever, sore throat *Your chest x-ray was negative for pneumonia. Your flu test was negative. Your strep test was negative. *A throat culture is pending. If you need antibiotics you will be contacted in 3 to 4 days. *In the meantime gargle with warm salt water and suck on throat lozenges for comfort *Increase fluid intake *Take medication as prescribed for your cough *Monitor your temperature, take Tylenol or Motrin as indicated *Follow up with a primary care provider within one week *Return to ED for worsening condition, changes, needs Prescriptions: Benzonatate [Tessalon Perles 100 mg Capsule] 100 mg PO ASDIR PRN #20 capsule PRN Reason: Forms: Return to Work
--- NOTE | 2019-05-19 16:59 | RADIOLOGY REPORT (SQ) ---
EXAM DESCRIPTION: CHEST 2 VIEWS COMPLETED DATE/TIME: 05/19/2019 3:34 pm REASON FOR STUDY: COUGH FEVER COMPARISON: None. EXAM PARAMETERS: NUMBER OF VIEWS: two views TECHNIQUE: Digital Frontal and Lateral radiographic views of the chest acquired. RADIATION DOSE: NA LIMITATIONS: none FINDINGS: LUNGS AND PLEURA: No opacities, masses or pneumothorax. No pleural effusion. MEDIASTINUM AND HILAR STRUCTURES: No masses or contour abnormalities. HEART AND VASCULAR STRUCTURES: Heart normal size. No evidence for failure. BONES: No acute findings. HARDWARE: None in the chest. OTHER: No other significant finding. IMPRESSION: NO ACUTE RADIOGRAPHIC FINDING IN THE CHEST. TECHNICAL DOCUMENTATION: JOB ID: [id number] [employer]- All Rights Reserved Reading location - IP/workstation name: [email or web address]
[2019-05-19 17:16] LABS: A TYPE INFLUENZA AG NEGATIVE (NEGATIVE); B INFLUENZA AG NEGATIVE (NEGATIVE)
[2019-05-19 17:57] VITALS: BP 126/75
== END 2019-05-19 17:55 | disposition home or self-care (01) ==
LOC: ER 15:32
DX: J02.9 Acute pharyngitis, unspecified (principal); R05 Cough; R50.9 Fever, unspecified; M79.10 Myalgia, unspecified site; Z90.49 Acquired absence of other specified parts of digestive tract
CPT/HCPCS: 71046; 87070; 87077; 87804; 87880; 99283